=== PATIENT | male | born 1955 | race Caucasian/White ===

== ENCOUNTER 2016-05-25 | Outpatient (CLI) | payer OTHER | END 2016-05-25 13:32 | disposition critical access hospital (66) | DX: R41.82 Altered mental status, unspecified (principal) | CPT/HCPCS: A0425; A0429 ==

== ENCOUNTER 2016-05-25 13:56 | Observation (INO) | payer OTHER ==
[2016-05-25] MEDS ORDERED: LORazepam 2 MG/ML SYRINGE IVP STA (15:54)
[2016-05-25] MEDS ORDERED: LORazepam 2 MG/ML SYRINGE ONE (15:54)
[2016-05-25] MEDS ORDERED: LORazepam 2 MG/ML SYRINGE IVP PRN (19:21)
[2016-05-25] MEDS ORDERED: SODIUM CHLORIDE FLUSH 0.9% 10 ML SYRINGE IVP PRN (19:22)
[2016-05-25] MEDS ORDERED: clonazePAM 0.5 MG TABLET PO PRN (19:29)
[2016-05-25] MEDS ORDERED: hydrOXYzine PAMOATE 25 MG CAPSULE PO PRN (19:29)
[2016-05-25] MEDS: SODIUM CHLORIDE FLUSH 0.9% 10 ML SYRINGE IVP SCH (22:44)
[2016-05-26] MEDS ORDERED: ASPIRIN 325 MG TABLET PO SCH (08:00)
[2016-05-26] MEDS ORDERED: VENLAFAXINE ER 75 MG CAPSULE PO SCH (09:00)
[2016-05-26] MEDS ORDERED: LATANOPROST 0.005% OPHTH DROPS EACHEYE SCH (09:00)
[2016-05-26] MEDS ORDERED: BENZTROPINE 2 MG TABLET PO SCH (09:00)
[2016-05-26] MEDS ORDERED: risperiDONE 1 MG/ML SOLUTION PO SCH (09:00)
[2016-05-26] MEDS ORDERED: ATORVASTATIN 10 MG TABLET PO SCH (09:00)
[2016-05-26] MEDS ORDERED: DIVALPROEX DR 250 MG TABLET PO SCH (09:00)
[2016-05-26] MEDS ORDERED: LEVOTHYROXINE 25 MCG TABLET ONE (16:48)
[2016-05-26] MEDS: SODIUM CHLORIDE FLUSH 0.9% 10 ML SYRINGE IVP SCH ×2 (18:03→18:04)
[2016-05-26] MEDS ORDERED: DIVALPROEX ER 250 MG TABLET PO SCH (21:00)
[2016-05-26] MEDS ORDERED: VENLAFAXINE 37.5 MG TABLET PO SCH (21:00)
[2016-05-26] MEDS ORDERED: risperiDONE 1 MG TABLET PO SCH (21:00)
[2016-05-27] MEDS ORDERED: LEVOTHYROXINE 25 MCG TABLET PO SCH (07:00)
== END 2016-05-26 21:30 | disposition home or self-care (01) ==
DX: R41.82 Altered mental status, unspecified (principal); F43.10 Post-traumatic stress disorder, unspecified; F32.9 Major depressive disorder, single episode, unspecified; F41.9 Anxiety disorder, unspecified; E03.9 Hypothyroidism, unspecified; E78.5 Hyperlipidemia, unspecified; Z79.899 Other long term (current) drug therapy; R29.702 NIHSS score 2; Z72.89 Other problems related to lifestyle
CPT/HCPCS: 36415; 51701; 70450; 70544; 70551; 80053; 80164; 80306; 80307; 80320; 80329; 81003; 82607; 82746; 83690; 84443; 84484; 85025; 86780; 87150; 93005; 93010; 96374; 99285; A9270; G0378; J2060

== ENCOUNTER 2023-03-13 14:36 | Outpatient (CLI) | payer MEDICARE ==
--- NOTE | 2023-03-13 12:37 | SLEEP CARE CONSULTATION ---
Information from patient questionnaire entered by Leena Tucker. I have reviewed and concur with the information entered by Leena Tucker. This document represents the service I personally performed and the decisions made by me, Brooklyn Lassiter MD, [facility]. History of Present Illness Service Date and Time: 03/13/2023 1000 Reason for Visit: New patient Chief Complaint: reports: Unrefreshed sleep, Excessive daytime sleepiness, Observed pauses in breathing, Fatigue, Frequent awakenings at night, Other Date of Onset: YRS Usual bedtime: 10PM Time it takes to fall asleep: 15MIN Snores at night: Yes Observed to quit breathing while asleep: Yes Sleeps alone due to snoring: No Number of times waking at night: MANY TIMES Reasons for waking at night: reports: Pain, Other (UNKNOWN) Toss, Turn, or Twitch while sleeping: Yes Recalls having dreams: Yes Usually gets out of bed at: 6AM Feels refreshed in the morning: No Morning headache: No Sleepy or fatigued during the day: Yes Ever fallen asleep while driving: Yes Takes day naps: Yes Dreams during day naps: No Prior sleep studies: Yes Additional HPI information: I had the pleasure of seeing Mr. Hills today regarding obstructive sleep apnea- hypopnea. As you know, he is a 68-year-old gentleman who was diagnosed with obstructive sleep apnea-hypopnea about 30 years ago at [facility] in [place]. He has been using a CPAP since. The ResMed AirSense 10 is only his second machine. [facility]. He said he has not gotten any supplies for a long time because [facility]. The ResMed AirSense 10 is set at 5 17 cmH2O. He wears ResMed P10 nasal pillows. The compliance data show usage in 317 out of the past 365 nights, averaging 6.5 hours a night. There was a period he could not use the CPAP because his mask broke. The residual AHI is 15.9 and average air leak is 12.3 L/minute. The 90th percentile pressure is 16.2 cmH2O. - Parasomnia Symptoms Ever been unable to move upon waking from sleep: No Walks in sleep: No Talks in sleep: No Ever acted out dreams in sleep: No Ever felt weak in the knees when startled or emotional: No Bothered by creepy, crawly, restless sensations in legs: No Problems with memory or concentration: No Subjective Initial [place] Sleepiness Scale score: 7 (02/16/23) Past Medical History Past Medical History: reports: Anxiety, Depression, Mood disorder Social History The patient's occupation is a RE. Patient is and lives in . Have you smoked in the past 12 months: No Alcohol use: No Caffeine use: Yes Caffeine amount and frequency: 1 POT DAILY Family History Family history of sleep disordered breathing: No Allergies and Home Medications Known drug allergies: No Drug allergies reviewed: Yes Home medication list reviewed: Yes Allergy and home medication list: Allergies No Known Drug Allergies Allergy (Verified 03/11/23 12:12) Review of Systems Weight loss over past 5 years: 70 Cardiovascular: denies: high blood pressure, palpitations, chest pain, irregular heart rate or pulse, leg or foot swelling, have to sleep sitting up, other Respiratory: denies: shortness of breath, wheeze, sputum production, chronic cough, other Gastrointestinal: denies: heartburn, difficulty swallowing, nausea, vomitting, diarrhea, abdominal pain, other Urinary: reports: frequency, urgency Neurological: denies: headaches, seizure, head trauma, disorientation, speech dysfunction, gait or balance problems, fainting or unconsciousness, other Psychiatric: reports: anxiety, depression, mood disorder Ear/Nose/Throat: reports: nasal congestion, sinus problems, dry mouth/throat, injury to nose, wisdom teeth removed Endocrine: reports: increased urination Musculoskeletal: denies: joint pain, neck pain, back pain, joint swelling, muscle pain or cramping, mobility problems, other Immunologic: denies: sneezing, rash, itching, allergies to food or environment, other Physical Exam Vital signs obtained and entered by: LEENA Guerrero MA Blood Pressure: 110/75 (PER PT) Height: 6 ft 4 in (PER PT) Weight: 238 lb (PER PT) Body Mass Index: 29.0 BMI Classification: Overweight Neck circumference: 17 Mood/affect: normal Impression and Plan IMPRESSION: 1. Obstructive Sleep Apnea-Hypopnea Syndrome, as previously diagnosed 30 years ago. The severity is unknown since there are no records. The patient has good CPAP compliance but the pressure setting is ineffective. The patient no longer gets supplies from the [employer] system and would like to work with Medicare instead. Therefore, I will reestablish the diagnosis and find the optimal pressure setting. Plan: 1. Schedule polysomnography + manual CPAP titration study. 2. Try to lose more weight. 3. Return for follow up after the sleep study. Follow up with Sleep Care in: 1-2 months Visit Type: Telehealth Video Video Type: Doximity Patient Location: work Patient agrees and consents to this telehealth visit type: Yes Patient agrees to have their insurance billed: Yes Time Spent with Patient (minutes): 15 Provider Statement: I spent 100% of the Telehealth Video Call with the patient with greater than 50% spent counseling the patient and coordination of care.
[2023-03-13 12:42] VITALS: BP 110/75
== END 2023-03-13 14:37 | disposition home or self-care (01) ==
LOC: SC 14:36
PROVIDERS: ATTEND Internal Medicine Pulmonary Disease
DX: G47.33 Obstructive sleep apnea (adult) (pediatric) (principal); E66.3 Overweight; Z68.29 Body mass index [BMI] 29.0-29.9, adult
CPT/HCPCS: 99442

== ENCOUNTER 2023-03-29 20:38 | Outpatient (CLI) | payer MEDICARE | END 2023-03-29 20:39 | disposition home or self-care (01) | LOC: SC 20:38 | PROVIDERS: ATTEND Internal Medicine Pulmonary Disease | DX: G47.33 Obstructive sleep apnea (adult) (pediatric) (principal); G47.61 Periodic limb movement disorder | CPT/HCPCS: 95810 ==

== ENCOUNTER 2023-04-04 19:29 | Outpatient (CLI) | payer MEDICARE | END 2023-04-04 19:30 | disposition home or self-care (01) | LOC: SC 19:29 | PROVIDERS: ATTEND Internal Medicine Pulmonary Disease | DX: G47.33 Obstructive sleep apnea (adult) (pediatric) (principal); G47.61 Periodic limb movement disorder | CPT/HCPCS: 95811 ==

== ENCOUNTER 2023-04-15 13:09 | Outpatient (CLI) | payer MEDICARE ==
--- NOTE | 2023-04-17 15:38 | SLEEP CARE CONSULTATION ---
Information from patient questionnaire entered by Leena Tucker. I have reviewed and concur with the information entered by Leena Tucker. This document represents the service I personally performed and the decisions made by me, Brooklyn Lassiter MD, [facility]. History of Present Illness Service Date and Time: 04/15/2023 1309 Initial [place] Sleepiness Scale score: 7 (02/16/23) Current [place] Sleepiness Scale score: 10 (04/15/23) Additional HPI information: Mr. Hills returned for follow up of the sleep study (diagnostic polysomnography and manual CPAP/BiPAP titration study) he recently had. The polysomnography showed the patient had normal sleep efficiency. The sleep architecture was abnormal for sleep fragmentation and reduced amount of time spent in REM and slow wave sleep (N3). Respiratory monitoring showed severe obstructive sleep apnea-hypopnea (AHI = 32.0) associated with frequent arousals, oxyhemoglobin desaturation and mild hypoxia (shilpa oxygen saturation of 84%). The respiratory events occurred predominantly during supine sleep (supine AHI = 47.2; non-supine = 5.71). Snore was light to moderate in intensity. There was mild periodic leg movement of sleep contributing to the sleep fragmentation. Cardiac rhythm was normal sinus rhythm without significant arrhythmia. No abnormal behavior (parasomnia) observed during the night. Manual CPAP/BiPAP titration study showed CPAP was initiated at 8 cmH2O and titrated up to CPAP at 10 cmH2O. CPAP at 9 cmH2O appeared to be optimal (AHI of 0 per hour on the pressure). There was supine REM sleep on the pressure. Oxygen saturation was normal throughout the night. The patient appeared to have tolerated positive airway pressure therapy very well. The patients sleep efficiency was normal. The sleep architecture was abnormal for sleep fragmentation and reduced amount of time spent in slow wave sleep (N3). There was moderate periodic leg movement of sleep contributing to the sleep fragmentation. Cardiac rhythm was normal sinus rhythm without significant arrhythmia. No abnormal behavior (parasomnia) observed during the night. The patient was informed of these findings. Presently, he uses a ResMed AirSense 10 [facility]. It is set at 5 17 cmH2O. He wears nasal pillows. Sleep Study - Results Type of Sleep Study: Polysomnography (POLY AND TITRATION COMPLETED 04/04/23) Prior sleep studies: Yes Allergies and Home Medications Drug allergies reviewed: Yes Home medication list reviewed: Yes Allergy and home medication list: Allergies No Known Drug Allergies Allergy (Verified 03/11/23 12:12) Review of Systems Review of systems same as previous: Yes Physical Exam Vital signs obtained and entered by: LEENA Guerrero MA Blood Pressure: 132/70 (LEFT ARM) Cuff size: regular Heart Rate: 75 O2 Saturation: 98 Height: 6 ft 4 in (PER PT) Weight: 250 lb 12.8 oz Body Mass Index: 30.5 BMI Classification: Obese Impression and Plan IMPRESSION: 1. Obstructive Sleep Apnea-Hypopnea Syndrome, severe, adequately controlled with CPAP set at 9 cmH2O. I set his ResMed AirSense 10 to 9 12 cmH2 O. He has good compliance. He would like a new machine on Medicare. PLAN: 1. Prescription made for an autoCPAP, heated humidifier, and related supplies through [employer]. 2. Return for follow up after one month of using the CPAP. Prescriptions: Auto CPAP Follow up with Sleep Care in: 1-2 months Time Spent with Patient (minutes): 15
[2023-04-17 15:45] VITALS: BP 132/70; O2SAT 98
== END 2023-04-15 13:10 | disposition home or self-care (01) ==
LOC: SC 13:09
PROVIDERS: ATTEND Internal Medicine Pulmonary Disease
DX: G47.33 Obstructive sleep apnea (adult) (pediatric) (principal)
CPT/HCPCS: 99212; G0463

== ENCOUNTER 2023-06-17 09:21 | Outpatient (CLI) | payer MEDICARE ==
--- NOTE | 2023-06-17 09:54 | SLEEP CARE CONSULTATION ---
Information from patient questionnaire entered by Leena Tucker. I have reviewed and concur with the information entered by Leena Tucker. This document represents the service I personally performed and the decisions made by me, Brooklyn Lassiter MD, [facility]. History of Present Illness Service Date and Time: 06/17/2023920 Reason for follow up: other (2MONTH F/U) Prior sleep studies: Yes HPI additional information: Mr. Hills was diagnosed to have severe obstructive sleep apnea-hypopnea syndrome and returns today for follow up of CPAP therapy. The patient recently acquired a new ResMed AirSense 11 from [employer] and was fitted with ResMed P10 nasal pillows. He uses the device nightly and all through the night except on night when the nasal pillows hurt his nose. The compliance report shows that he uses t he device 30 nights out of the past 30 nights, averaging 8.1 hours a night. He complains of no particular problem with the device such as soreness on the face, dry nose, epistaxis, nasal congestion or headache. He wears a chinstrap to keep his mouth shut (he used to use full face masks). He thinks that the pressure of 9 - 12 cmH2O is comfortable. On the CPAP therapy he notices improvement in his sleep quality, and that he wakes up feeling fresher in the morning and more awake/alert during the day. His notices no snore at all. [place] Sleepiness Scale score is 9. The average residual AHI is 0.5; and average air leak is, 6.3 L/minute. The 90th percentile pressure is 11.8 cmH2O. Sleep Study - Results Prior sleep studies: Yes CPAP Compliance Data - Data Reviewed with Patient Average duration of nightly device use: 7HRS 41MINS Compliance rate %: 92 (02/27/23-05/07/2023) Current pressure setting (cmH2O): 10-12 Average residual AHI: 1.3 Subjective Initial [place] Sleepiness Scale score: 7 (02/16/23) Current [place] Sleepiness Scale score: 9 (06/17/23) Allergies and Home Medications Drug allergies reviewed: Yes Home medication list reviewed: Yes Allergy and home medication list: Allergies No Known Drug Allergies Allergy (Verified 06/13/23 14:56) Review of Systems Review of systems same as previous: Yes (NO CHANGE) Physical Exam Vital signs obtained and entered by: LEENA Guerrero MA Blood Pressure: 123/67 (LEFT ARM) Cuff size: regular Heart Rate: 60 O2 Saturation: 97 Height: 6 ft 4 in (PER PT) Weight: 259 lb 6.4 oz Body Mass Index: 31.6 BMI Classification: Obese Impression and Plan IMPRESSION: 1. Obstructive Sleep Apnea-Hypopnea Syndrome, severe (AHI was 32.0), with the patient continuing to do well on nasal CPAP therapy. He has excellent compliance and significant clinical benefits. The current pressure appears effective and comfortable. Overall, he is very satisfied with the treatment and plans to continue with it long-term. No adjustment is necessary today except for him to try a nasal mask. PLAN: 1. Continue with autoCPAP set at 9 - 12 cm H2O. 2. Try either a ResMed N30i mask or N30 mask next time he is eligible for a new mask. 3. Return in one year for follow up or earlier if there is any problem with the treatment. Follow up with Sleep Care in: 1 year Visit Type: In Office Time Spent with Patient (minutes): 15 Provider Statement: I spent 100% of the Face to Face Visit with the patient with greater than 50% spent counseling the patient and coordination of care.
[2023-06-17 10:03] VITALS: BP 123/67; O2SAT 97
== END 2023-06-17 09:22 | disposition home or self-care (01) ==
LOC: SC 09:21
PROVIDERS: ATTEND Internal Medicine Pulmonary Disease
DX: G47.33 Obstructive sleep apnea (adult) (pediatric) (principal); E66.9 Obesity, unspecified; Z68.31 Body mass index [BMI] 31.0-31.9, adult
CPT/HCPCS: 99212; G0463

== ENCOUNTER 2023-12-09 13:49 | Outpatient (CLI) | payer MEDICARE ==
--- NOTE | 2023-12-10 08:15 | SLEEP CARE CONSULTATION ---
Information from patient questionnaire entered by Leena Tucker. I have reviewed and concur with the information entered by Leena Tucker. This document represents the service I personally performed and the decisions made by me, Brooklyn Lassiter MD, [facility]. History of Present Illness Service Date and Time: 12/09/2023 1349 Reason for follow up: six month Equipment type: CPAP (RESMED) Prior sleep studies: Yes HPI additional information: Mr. Hills was diagnosed to have severe obstructive sleep apnea-hypopnea syndrome and returns today for follow up of CPAP therapy. The patient recently acquired a new ResMed AirSense 11 from [employer] and was fitted with ResMed P10 nasal pillows with a chinstrap. He uses the device nightly and all through the night except on night when the nasal pillows hurt his nose. The compliance report shows that he uses the device 174 nights out of the past 180 nights, averaging 8.1 hours a night. He complains of no particular problem with the device such as soreness on the face, dry nose, epistaxis, nasal congestion or headache. He wears a chinstrap to keep his mouth shut (he used to use full face masks). He thinks that the pressure of 9 - 12 cmH2O is comfortable. On the CPAP therapy he notices improvement in his sleep quality, and that he wakes up feeling fresher in the morning and more awake/alert during the day. His notices no snore at all. [place] Sleepiness Scale score is 5. The average residual AHI is 0.6; and average air leak is, 3.3 L/minute. The 90th percentile pressure is 11.8 cmH 2O. Sleep Study - Results Prior sleep studies: Yes CPAP Compliance Data - Data Reviewed with Patient Average duration of nightly device use: 6HRS 39MINS Compliance rate %: 92 (06/08/23-12/04/23) Current pressure setting (cmH2O): 9-12 Average residual AHI: 0.6 Subjective Missed days of use due to: reports: mask issues Patient concerns: reports: mask discomfort, dry mouth, nose, throat Initial [place] Sleepiness Scale score: 7 (02/16/23) Current [place] Sleepiness Scale score: 5 (12/09/23) Allergies and Home Medications Drug allergies reviewed: Yes Home medication list reviewed: Yes Allergy and home medication list: Allergies No Known Drug Allergies Allergy (Verified 12/09/23 13:42) Review of Systems Review of systems same as previous: Yes (NO CHANGE) Physical Exam Vital signs obtained and entered by: LEENA Guerrero MA Blood Pressure: 121/72 (LEFT ARM) Cuff size: long Heart Rate: 89 O2 Saturation: 96 Height: 6 ft 4 in (PER PT) Weight: 277 lb 12.8 oz Body Mass Index: 33.7 BMI Classification: Obese Impression and Plan IMPRESSION: 1. Obstructive Sleep Apnea-Hypopnea Syndrome, severe (AHI was 32.0), with the patient having adequate compliance but uncomfortable with the treatment, mainly due to the nasal pillows hurting his nostrils. I showed him other types of masks. Because the residual AHI is very low, I recommend lowering the pressure, so that he does not have to wear the nasal pillows as tightly. He is interested in the Inspire therapy (hypoglossal nerve stimulation) and has an appointment with an ENT surgeon at [facility] in January. His BMI is 34 which makes him a candidate for the procedure. PLAN: 1. Lower autoCPAP to 6 - 10 cm H2O to help with mask seal. 2. Try an N20 or [employer] nasal mask 3. Consider Inspire therapy (hypoglossal nerve stimulation) 4. Return for follow up in one month. Counseling Topics: Weight control Follow up with Sleep Care in: 1-2 months Visit Type: In Office Time Spent with Patient (minutes): 15 Provider Statement: I spent 100% of the Face to Face Visit with the patient with greater than 50% spent counseling the patient and coordination of care.
[2023-12-10 08:22] VITALS: BP 121/72; O2SAT 96
== END 2023-12-09 13:50 | disposition home or self-care (01) ==
LOC: SC 13:49
PROVIDERS: ATTEND Internal Medicine Pulmonary Disease
DX: G47.33 Obstructive sleep apnea (adult) (pediatric) (principal); E66.9 Obesity, unspecified; Z68.33 Body mass index [BMI] 33.0-33.9, adult
CPT/HCPCS: 99212; G0463

== ENCOUNTER 2024-01-20 14:35 | Outpatient (CLI) | payer MEDICARE ==
--- NOTE | 2024-01-20 14:55 | SLEEP CARE CONSULTATION ---
Information from patient questionnaire entered by Dylon Hills. I have reviewed and concur with the information entered by Dylon Hills. This document represents the service I personally performed and the decisions made by me, Brooklyn Lassiter MD, [facility]. History of Present Illness Service Date and Time: 01/20/2024 1435 Previous diagnosis: Severe, Obstructive Sleep Apnea-Hypopnea Syndrome AHI: 32.0 Reason for follow up: other (6-Week F/U) Equipment type: CPAP Equipment obtained from: [employer] Mask style: Nasal pillows Prior sleep studies: Yes Type of Sleep Study: Polysomnography ([address] [facility] poly and titration) HPI additional information: Mr. Hills was diagnosed to have severe obstructive sleep apnea-hypopnea syndrome and returns today for follow up of CPAP therapy. The patient recently acquired a new ResMed AirSense 11 from [employer] and was fitted with ResMed P10 nasal pillows with a chinstrap. He uses the device nightly and all through the night except on night when the nasal pillows hurt his nose. The compliance report shows that he uses the device 84 nights out of the past 90 nights, averaging 6.1 hours a night. He complains of no particular problem with the device such as soreness on the face, dry nose, epistaxis, nasal congestion or headache. He wears a chinstrap to keep his mouth shut (he used to use full face masks). He thinks that the pressure of 6 - 10 (was 9 12) cmH2O is comfortable. On the CPAP therapy he notices improvement in his sleep quality, and that he wakes up feeling fresher in the morning and more awake/alert during the day. His notices no snore at all. [place] Sleepiness Scale score is 7. The average residual AHI is 0.9; and average air leak is, 3.6 L/minute. The 90th percentile pressure is 11.8 cmH2O. CPAP Compliance Data - Data Reviewed with Patient Average duration of nightly device use: 5 h 34 min Compliance rate %: 75 Current pressure setting (cmH2O): 6 - 10 Average residual AHI: 1.0 Subjective Initial [place] Sleepiness Scale score: 7 (02/16/23) Current [place] Sleepiness Scale score: 8 (01/20/24) Allergies and Home Medications Drug allergies reviewed: Yes Home medication list reviewed: Yes Allergy and home medication list: Allergies No Known Drug Allergies Allergy (Verified 12/09/23 13:42) Review of Systems Review of systems same as previous: Yes Physical Exam Height: 6 ft 4 in (PER PT) Impression and Plan IMPRESSION: 1. Obstructive Sleep Apnea-Hypopnea Syndrome, severe (AHI was 32.0), with the patient having adequate compliance but uncomfortable with the treatment, mainly due to the nasal pillows hurting his nostrils. I showed him other types of masks. Because the residual AHI is very low, I recommend lowering the pressure, so that he does not have to wear the nasal pillows as tightly. The patient has been evaluated for the Inspire therapy (hypoglossal nerve stimulation) by Dr. Salter. He will have the drug-induced sleep endoscopy (DISE) in the near future. PLAN: 1. Leave autoCPAP to 6 - 10 cm H2O. 2. Proceed with Inspire Therapy. 3. Return for a follow up sleep study after the surgery. Follow up with Sleep Care in: 1 year Follow up with: Other (ENT) Visit Type: In Office Time Spent with Patient (minutes): 15 Provider Statement: I spent 100% of the Face to Face Visit with the patient with greater than 50% spent counseling the patient and coordination of care.
== END 2024-01-20 14:36 | disposition home or self-care (01) ==
LOC: SC 14:35
PROVIDERS: ATTEND Internal Medicine Pulmonary Disease
DX: G47.33 Obstructive sleep apnea (adult) (pediatric) (principal)
CPT/HCPCS: 99212; G0463